=== PATIENT | male | born 1995 | race African-American/Black ===

== ENCOUNTER 2016-09-03 12:46 | Emergency (ER) | payer SELFPAY ==
[~2016-09-03] VITALS: Ht 172.7 cm; Wt 78.5 kg
[2016-09-03 12:52] VITALS: BP 160/77
--- NOTE | 2016-09-03 13:06 | PHYS DOC ---
Past Medical History Past Medical History: Asthma Past Surgical History: Appendectomy Alcohol Use: Occasionally Drug Use: None Adult General Chief Complaint Chief Complaint: PAIN ON URINATION [facility] HPI Patient is a 21 year old now presents emergency room today with complaint of intermittent dysuria and is been ongoing for the past week. Patient reports she' s also had increased frequency of urination. He denies any penile discharge. He denies testicular pain or perineal pain or swelling. He denies fevers or chills. Patient denies any previous history of urinary tract infections. He denies concerns for an STD today. He denies flank pain, fevers, myalgias or arthralgias. Denies nausea or vomiting. Review of Systems Review of Systems Constitutional: Denies fever or chills [] Eyes: Denies change in visual acuity, redness, or eye pain [] HENT: Denies nasal congestion or sore throat [] Respiratory: Denies cough or shortness of breath [] Cardiovascular: No additional information not addressed in HPI [] GI: Denies abdominal pain, nausea, vomiting, bloody stools or diarrhea [] : Denies dysuria or hematuria [] Musculoskeletal: Denies back pain or joint pain [] Integument: Denies rash or skin lesions [] Neurologic: Denies headache, focal weakness or sensory changes [] Endocrine: Denies polyuria or polydipsia [] Allergies Allergies Allergies Coded Allergies Type Severity Reaction Last Updated Verified No Known Drug Allergies 09/03/16 No Physical Exam Physical Exam Constitutional: Well developed, well nourished, no acute distress, non-toxic appearance. [] HENT: Normocephalic, atraumatic, bilateral external ears normal, oropharynx moist, no oral exudates, nose normal. [] Eyes: PERRLA, EOMI, conjunctiva normal, no discharge. [] Neck: Normal range of motion, no tenderness, supple, no stridor. [] Cardiovascular:Heart rate regular rhythm, no murmur [] Lungs & Thorax: Bilateral breath sounds clear to auscultation [] Abdomen: Bowel sounds normal, soft, no tenderness, no masses, no pulsatile masses. Skin: Warm, dry, no erythema, no rash. [] Back: No tenderness, no CVA tenderness. [] Extremities: No tenderness, no cyanosis, no clubbing, ROM intact, no edema. [] Neurologic: Alert and oriented X 3, normal motor function, normal sensory function, no focal deficits noted. [] Psychologic: Affect normal, judgement normal, mood normal. [] Current Patient Data Vital Signs Vital Signs Date Time Temp Pulse Resp B/P Pulse Ox O2 Delivery O2 Flow Rate FiO2 09/03/16 12:52 98.4 92 15 100 Room Air 98.4 Lab Values Laboratory Tests Test 09/03/16 12:55 Urine Collection Type Unknown Urine Color Yellow Urine Clarity Clear Urine pH 6.0 Urine Specific [place] 1.020 Urine Protein Negativemg/dL (NEG-TRACE) Urine Glucose (UA) Negativemg/dL (NEG) Urine Ketones (Stick) Tracemg/dL (NEG) Urine Blood Negative (NEG) Urine Nitrite Negative (NEG) Urine Bilirubin Negative (NEG) Urine Urobilinogen Dipstick 1.0mg/dL (0.2 mg/dL) Urine Leukocyte Esterase Trace (NEG) Urine RBC 0/HPF (0-2) Urine WBC 5-10/HPF (0-4) Urine Squamous Epithelial Cells Occ/LPF Urine Bacteria 0/HPF (0-FEW) Urine Mucus Mod/LPF EKG EKG [] Radiology/Procedures Radiology/Procedures [] Course & Med Decision Making Course & Med Decision Making Pertinent Labs and Imaging studies reviewed. (See chart for details) [] Dragon Disclaimer Dragon Disclaimer This electronic medical record was generated, in whole or in part, using a voice recognition dictation system. Departure Departure Impression: Primary Impression: Dysuria Disposition: 01 HOME, SELF-CARE Condition: GOOD Referrals: NO PCP (PCP) Patient Instructions: Dysuria-Brief Additional Instructions: 1. Your urine test today doesn't show any evidence of bacteria. However, you did have quite a few white blood cells in your urine. This may indicate was called sterile pyuria which can be a precursor for urinary tract infection or interstitial cystitis. 2. Take the medication as prescribed. 3. If your symptoms have not resolved after completion of the medication, then use the pamphlet provided for assistance in contacting a primary care doctor's office to get in for an appointment for reevaluation. Scripts Phenazopyridine Hcl (Pyridium)200 Mg [id number] Mg PO TID #9 TAB Prov:ERIS WATERS 09/03/16 Ciprofloxacin Hcl 500 Mg Tablet1 Tab PO BID #14 TAB Prov:ERIS WATERS 09/03/16 ERIS WATERS Sep 03, 2016 13:05
[2016-09-03 13:08] LABS: BILIRUBIN,URINE NEGATIVE (NEG); GLUCOSE,URINE NEGATIVE (NEG); NITRITE,URINE NEGATIVE (NEG); PROTEIN,URINE NEGATIVE (NEG-TRACE)
[2016-09-03 13:44] LABS: BACTERIA,URINE 0 /HPF (0-FEW); RBC,URINE 0 /HPF (0-2); SQUAMOUS EPITHELIAL CELL,UR OCC /LPF
[2016-09-03] MEDS ORDERED: PHEN-318 PO (13:52)
[2016-09-03] MEDS ORDERED: CIPR500T PO (13:52)
== END 2016-09-03 14:00 | disposition home or self-care (01) ==
LOC: ER 12:46
DX: R30.0 Dysuria (principal); J45.909 Unspecified asthma, uncomplicated; Z90.49 Acquired absence of other specified parts of digestive tract
CPT/HCPCS: 81001; 87086; 99284

== ENCOUNTER 2017-02-22 18:18 | Emergency (ER) | payer SELFPAY ==
[~2017-02-22 18:18] MED LIST: CIPR500T PO; PHEN-318 PO
[2017-02-22 18:30] VITALS: BP 124/73
[2017-02-22] MEDS ORDERED: PENICILLIN G BENZATHINE LA 1,200,000 UNIT/2 ML DISP.SYRIN. IM ONE (18:30)
--- NOTE | 2017-02-22 18:31 | PHYS DOC ---
Past Medical History Past Medical History: Asthma Past Surgical History: Appendectomy Alcohol Use: Occasionally Drug Use: None Adult General Chief Complaint Chief Complaint: SORE THROAT HPI HPI Patient is a 21 year old male presents to the emergency department with complaints of sore throat for 3 days. He states his girlfriend was diagnosed with a strep infection today. Patient reports fever, nausea, vomiting. Review of Systems Review of Systems Constitutional: Denies fever or chills [] Eyes: Denies change in visual acuity, redness, or eye pain [] HENT: Denies nasal congestion; complaining of sore throat [] Respiratory: Denies cough or shortness of breath [] Cardiovascular: No additional information not addressed in HPI [] GI: Denies abdominal pain, nausea, vomiting, bloody stools or diarrhea [] Musculoskeletal: Denies back pain or joint pain [] Integument: Denies rash or skin lesions [] Allergies Allergies Allergies Coded Allergies Type Severity Reaction Last Updated Verified No Known Drug Allergies 09/03/16 No Physical Exam Physical Exam Constitutional: Well developed, well nourished, no acute distress, non-toxic appearance. [] HENT: Normocephalic, atraumatic, bilateral external ears normal, oropharynx moist, a pharynx erythematous with exudate. Uvula is midline without peritonsillar abscess. Eyes: PERRLA, EOMI, conjunctiva normal, no discharge. [] Neck: Normal range of motion, no tenderness, supple, no stridor. [] Cardiovascular:Heart rate regular rhythm, no murmur [] Lungs & Thorax: Bilateral breath sounds clear to auscultation [] Abdomen: Bowel sounds normal, soft, no tenderness, no masses, no pulsatile masses. [] Skin: Warm, dry, no erythema, no rash. [] Back: No tenderness, no CVA tenderness. [] Extremities: No tenderness, no cyanosis, no clubbing, ROM intact, no edema. [] Neurologic: Alert and oriented X 3, normal motor function, normal sensory function, no focal deficits noted. [] Psychologic: Affect normal, judgement normal, mood normal. [] EKG EKG [] Radiology/Procedures Radiology/Procedures [] Course & Med Decision Making Course & Med Decision Making Patient has positive strep exposure with posterior pharynx without exudate. He has elected to be treated at this time in the emergency department Bicillin LA 1.2 milliunits IM. Pertinent Labs and Imaging studies reviewed. (See chart for details) [] Dragon Disclaimer Dragon Disclaimer This electronic medical record was generated, in whole or in part, using a voice recognition dictation system. Departure Departure Impression: Primary Impression: Pharyngitis Disposition: HOME, SELF-CARE Condition: STABLE Referrals: NO PCP (PCP) [facility] Patient Instructions: Strep Throat Additional Instructions: You were given Bicillin LA 1.2 million units IM in the emergency department. Please refrain from sharing eating utensils drinking glasses or kissing other individuals, or exchanging any type of oral secretions for 24 hours. He may use Tylenol and/or Motrin as labeled and is indicated for symptom management. Problem Qualifiers Primary Impression: Pharyngitis Pharyngitis/tonsillitis etiology: streptococcus Qualified Codes: J02.0 - Streptococcal pharyngitis ADRIENNE OCHOA APRN Feb 22, 2017 18:31
== END 2017-02-22 18:43 | disposition home or self-care (01) ==
LOC: ER 18:18
DX: J02.0 Streptococcal pharyngitis (principal); J45.909 Unspecified asthma, uncomplicated
CPT/HCPCS: 96372; 99283; J0561